=== PATIENT | female | born 1990 | race African-American/Black ===

== ENCOUNTER 2024-09-06 21:57 | Emergency (ER) | payer MEDICAID, SELFPAY ==
[2024-09-06 22:08] VITALS: BP 141/89; PULSE 85; RESP 18; TEMP 36.6; O2SAT 100
--- NOTE | 2024-09-07 01:59 | ED.GENADULT ---
HPI - General Adult General Chief complaint: Wound/Laceration Stated complaint: laceration Time Seen by Provider: 09/07/24 01:42 History of Present Illness HPI narrative: Patient is a 34-year-old female who presents ER with a laceration to the dorsal aspect of the middle phalanx of the 2nd digit of the left hand. She dropped the blade to a able bodied watchman on her finger. No numbness or tingling. Tetanus up-to-date. Review of Systems Constitutional: Constitutional: Reports no additional constitutional complaints Integumentary/Breasts: Skin/Breast: Reports system reviewed and no additional complaints, except as docu PMFSH Past Medical History Medical History (Updated 09/07/24 @ 04:18 by Johnie Black MD) Healthy female adult Exam Narrative: GENERAL: Well-appearing, well-nourished, and in no acute distress. HEAD: Normocephalic, atraumatic. EXTREMITIES: Normal range of motion. No edema. SKIN: Warm, dry, no rash. 0.5 cm laceration dorsal aspect of the middle phalanx of the 2nd digit of the left hand. Well-approximated. Brisk capillary refill. NEURO: Alert and oriented x3. PSYCH: Normal mood and affect. Course Course Emergency Course: Repair with skin glue and Steri-Strips. Discharge. Vital Signs Vital signs: Vital Signs Temperature 97.9 F 09/06/24 22:08 Pulse Rate 85 09/06/24 22:08 Respiratory Rate 18 09/06/24 22:08 Blood Pressure 141/89 H 09/06/24 22:08 Pulse Oximetry 100 09/06/24 22:08 Oxygen Delivery Room Air 09/06/24 22:08 Temperature 97.8 F 09/07/24 02:34 Pulse Rate 82 09/07/24 02:34 Respiratory Rate 17 09/07/24 02:34 Blood Pressure 139/87 09/07/24 02:34 Pulse Oximetry 100 09/07/24 02:34 Oxygen Delivery Room Air 09/06/24 22:08 Procedures Laceration Laceration 1: Date: 09/07/24 Time: 02:00 Site: other (middle phalanx 2nd digit) Side (If applicable): left Size (cm): 0.5 Description: linear Depth: simple, single layer ====== Skin Level ====== Skin layer closed with: dermabond and steri strips ====== Subcutaneous Layer ====== ====== Muscle Layer ====== ====== Tendon Layer ====== Medical Decision Making Vital Signs Vital Signs: Vital Signs Temperature 97.9 F 09/06/24 22:08 Pulse Rate 85 09/06/24 22:08 Respiratory Rate 18 09/06/24 22:08 Blood Pressure 141/89 H 09/06/24 22:08 Pulse Oximetry 100 09/06/24 22:08 Oxygen Delivery Room Air 09/06/24 22:08 Temperature 97.8 F 09/07/24 02:34 Pulse Rate 82 09/07/24 02:34 Respiratory Rate 17 09/07/24 02:34 Blood Pressure 139/87 09/07/24 02:34 Pulse Oximetry 100 09/07/24 02:34 Oxygen Delivery Room Air 09/06/24 22:08 Discharge Plan Discharge Clinical Impression: Laceration of finger Patient Disposition: Home, Self-Care Condition: Stable Instructions: Skin Adhesive Care (ED), Steristrips (ED) Additional Instructions: Return to the ER if you have fever over 101F, your wound is infected, or you have other concerns. Follow-up/Referrals: PHYSICIAN NOT ON STAFF,NONSTAFF [Primary Care Provider] - 1 Week
[2024-09-07 02:34] VITALS: BP 139/87; PULSE 82; RESP 17; TEMP 36.6; O2SAT 100
== END 2024-09-07 02:36 | disposition home or self-care (01) ==
PROVIDERS: Emergency Provider Emergency Medicine
DX: S61.211A Laceration without foreign body of left index finger without damage to nail, initial encounter (principal); W20.8XXA Other cause of strike by thrown, projected or falling object, initial encounter
CPT/HCPCS: 12001; 99282